=== PATIENT | female | born 1975 | race African-American/Black ===

== ENCOUNTER 2018-06-17 16:25 | Emergency (ER) | payer BC ==
[~2018-06-17] VITALS: Ht 170.2 cm; Wt 59.0 kg
--- NOTE | 2018-06-17 16:42 | NUR ---
patient bib self c/o chest pain 1 hour [employer], sharp pain, radiating to Bilateral arm, no SOB. alert and oriented x 4, verbally responsive, and able to make needs known. on room air, breathing evenly and unlabored. on monitor and pulse ox. kept comfrotable,will continue to monitor accordingly. awaiting for MD for eval.
[2018-06-17 17:00] LABS: BASOPHILS # (AUTO) 0.1 /CMM (0.0-0.2); BASOPHILS % (AUTO) 1.4 % (0.0-2.0); EOSINOPHILS % (AUTO) 4.9 % (0.0-6.0); HEMATOCRIT 42 % (33-45); LYMPHOCYTES # (AUTO) 3.6 /CMM (0.8-4.8); LYMPHOCYTES % (AUTO) 43.8 % (20.0-44.0); MEAN CORPUSCULAR HGB CONC 34 g/dl (31.0-36.0); MEAN CORPUSCULAR VOLUME 91 fL (82-100); MONOCYTES # (AUTO) 0.6 /CMM (0.1-1.30); MONOCYTES % (AUTO) 7.2 % (2.0-12.0); NEUTROPHILS # (AUTO) 3.5 /CMM (1.8-8.9); NEUTROPHILS % (AUTO) 42.7 % (43.0-81.0); PLATELET COUNT (AUTO) 319 /CMM (150-450); RED BLOOD CELL COUNT(AUTO) 4.59 MIL/uL (4.0-5.2); WHITE BLOOD COUNT (AUTO) 8.3 K/uL (4.3-11.0)
--- NOTE | 2018-06-17 17:02 | NUR ---
urine collected and sent to lab.
[2018-06-17 17:12] LABS: CALCIUM, SERUM 9.1 mg/dL (8.5-10.1); CARBON DIOXIDE 32 mmol/L (21-32); CHLORIDE 103 mmol/L (98-107); CREATININE 0.8 mg/dL (0.6-1.3); GLUCOSE 96 mg/dL (74-106); POTASSIUM 4.3 mmol/L (3.5-5.1); SODIUM SERUM 140 mmol/L (136-145); UREA NITROGEN, BLOOD 16 mg/dL (7-18)
[2018-06-17 17:38] VITALS: BP 130/88
--- NOTE | 2018-06-17 17:39 | NUR ---
Patient discharged to home in stable condition. Written and verbal after care instructions given. Patient verbalizes understanding of instruction.IV removed. Catheter intact and site benign. Pressure and 4x4 applied to site. No bleeding noted.
== END 2018-06-17 17:38 | disposition home or self-care (01) ==
LOC: ER 16:31 → EDSEX 16:31 → ER 17:38
DX: R07.89 Other chest pain (principal)
CPT/HCPCS: 36415; 71045; 80048; 84484; 84703; 85025; 85730; 93005; 99284; A4606; Z7610

== ENCOUNTER 2023-04-05 09:50 | Emergency (ER) | payer BC ==
[~2023-04-05] VITALS: Ht 170.2 cm; Wt 63.5 kg
[2023-04-05] MEDS ORDERED: KETOROLAC TROMETHAMINE INJ 30 MG/ML VIAL IM ONE (10:30)
[2023-04-05] MEDS ORDERED: KETOROLAC TROMETHAMINE INJ 30 MG/ML VIAL ONE (10:33)
[2023-04-05] MEDS ORDERED: HYDR-3972 PO ×2 (11:12→11:34)
[2023-04-05] MEDS ORDERED: IBUP-1955 PO ×2 (11:12→11:34)
[2023-04-05 11:48] VITALS: BP 123/91; TEMP 98.2; O2SAT 99
== END 2023-04-05 11:56 | disposition home or self-care (01) ==
LOC: ER 09:50
DX: M25.562 Pain in left knee (principal); W16.312A Fall into other water striking water surface causing other injury, initial encounter; Y93.89 Activity, other specified; Y92.89 Other specified places as the place of occurrence of the external cause; Y99.8 Other external cause status
CPT/HCPCS: 29505; 73564; 99283; J1885